=== PATIENT | male | born 1985 | race Caucasian/White ===

== ENCOUNTER 2021-03-02 20:24 | Emergency (ER) | payer OTHER ==
[~2021-03-02] VITALS: Ht 175.3 cm; Wt 91.2 kg
[2021-03-02] MEDS ORDERED: LIDOCAINE-MPF 1%, 5ML INFIL ONE (20:30)
[2021-03-02] MEDS ORDERED: LIDOCAINE-MPF 1%, 5ML ONE (20:42)
[2021-03-02 21:23] VITALS: BP 133/74
== END 2021-03-02 21:32 | disposition home or self-care (01) ==
LOC: ED 20:30
DX: S01.112A Laceration without foreign body of left eyelid and periocular area, initial encounter (principal); X58.XXXA Exposure to other specified factors, initial encounter; Y93.89 Activity, other specified; Y92.89 Other specified places as the place of occurrence of the external cause; Y99.8 Other external cause status
CPT/HCPCS: 12011; 99281; 99282